=== PATIENT | male | born 1975 | race Caucasian/White ===

== ENCOUNTER 2023-07-31 12:53 | Day surgery (SDC) | payer BC ==
[~2023-07-31] VITALS: Ht 188 cm; Wt 98.9 kg
[2023-07-31 13:08] VITALS: BP 138/83
[2023-07-31] MEDS ORDERED: LOSARTAN POTASS25 MG PO (13:16)
[2023-07-31] MEDS ORDERED: SUDOGEST30 MG PO (13:17)
[2023-07-31] MEDS ORDERED: SINGULAIR10 MG PO (13:17)
--- NOTE | 2023-07-31 15:05 | NUR ---
07/31/23 1505 Sherry Rascon 1452 PT TO PACU FROM OR. AWAKE AND DENIES PAIN. RESPIRATIONS EVEN AND UNLABORED. 1500 DR AT BEDSIDE TO DISCUSS PROCEDURE RESULTS AND PLAN OF CARE.
[2023-07-31 15:22] VITALS: BP 134/89
--- NOTE | 2023-08-01 12:12 | OR ---
[facility] [address] [place], [place] [address] Signed DATE OF OPERATION: 07/31/2023 SURGEON: Librado Patel MD PREOPERATIVE DIAGNOSES: 1. Episodic dysphagia, episodic reflux, on no specific treatment. 2. Colon screening. POSTOPERATIVE DIAGNOSES: 1. Normal colon to cecum. 2. Poor flap valve with low-grade distal esophageal stricture; no evidence of Roberts's epithelium or eosinophilic esophagitis endoscopically. PROCEDURES: 1. Esophagogastroduodenoscopy with biopsy. 2. Total colonoscopy to cecum. ANESTHESIA: Intravenous sedation, fentanyl 150 mcg, Versed 8 mg total. INDICATION: This 48-year-old white man is a patient of Reta Cotto and the of my dental hygienist. He has had problems of distal dysphagia from time to time, though most recently not as much. He has had significant gastroesophageal reflux as far back as high school. He currently is under no medication treatment. He has had dysphagia to solids primarily, significant enough that he must regurgitate what he swallows from time to time. He has had no spontaneous regurgitation, however. He is now to undergo upper endoscopy on the basis of his dysphagia and known reflux disease as well as screening colonoscopy based on his age. The risk of both procedures include, but are not limited to bleeding, infection, and perforation. He understands and wished to proceed. FINDINGS: Upper endoscopy did demonstrate a low-grade distal esophageal stricture. There was no sign of Roberts's epithelium or actual malignancy in any way. The flap valve was marginal. No doubt allowing for reflux related to stricture formation. Stomach and duodenum were essentially normal. CLOtest was negative 30 minutes post procedure. On colonoscopy, the prep was good. Complete colonoscopy was undertaken to the cecum with full intubation of the cecum. Good visualization of the appendiceal orifice and the ileocecal valve. There were no findings on the colon. Electronically Signed By: LIBRADO PATEL MD 08/01/23 1212 PATIENT NAME: SUKH GARDNER OPERATIVE REPORT DATE OF : 71 REPORT #: [id number] PHYSICIAN: LIBRADO PATEL MD PCP: RETA COTTO REPORT IS CONFIDENTIAL AND NOT TO BE RELEASED WITHOUT AUTHORIZATION [facility] [address] [place], [place] [address] Signed DESCRIPTION OF PROCEDURE: The patient was brought to the endoscopy suite and placed in the lateral decubitus position after undergoing hypopharyngeal topical anesthesia with lidocaine spray. A bite block was placed. He was given intravenous sedation to the point of slurred speech and nystagmus. Olympus video upper endoscope was passed in the hypopharynx. The vocal cords were transiently visualized and normal. Scope was advanced to the esophagus. Throughout its length, it was normal except in the distal portion where there is a concentric ring consistent with a Schatzki's ring or reflux-related stricture. The scope was easily passed through this into the stomach which was normal. Rugal folds were normal as was the antrum. The pylorus was normal. Scope was passed through into the duodenum. Biopsies were taken of the duodenum to assess for celiac disease. The scope was withdrawn. Biopsies taken of the antrum for both DAI and pathologic testing. Retroflexed view was undertaken showing somewhat effaced flap valve but no sign of large hiatal hernia. The scope was straightened, withdrawn and biopsies then taken of the distal esophageal stricture area. Quite notably there was no evidence of Roberts's epithelium or ermelinda neoplasm and the stricture was not such that dilation would likely be effective given its very small size. The scope was then withdrawn and biopsies were taken of the midesophagus to assess for eosinophilic esophagitis. Further withdrawal of the proximal esophagus showed no findings of concern. Plans were then made for colonoscopy. Additional sedation was given. A digital rectal examination was performed, which was normal. An Olympus video colonoscope was passed in the rectum and manipulated throughout the colon. There was no evidence of diverticular formation, colitis, polyps, or other abnormalities. Scope was ultimately advanced to the cecum. The ileocecal valve and appendiceal orifice were normal. The scope was then withdrawn and examination carefully undertaken showing no sign of polyps, diverticular formation, colitis, or cancer. Retroflexed view of the rectum was normal. Scope was removed and the patient was taken to the recovery room in good condition. CONCLUDING DIAGNOSES: 1. Reflux related concentric stricture, no evidence of malignancy, biopsied and not dilated at this time. A poor flap valve is also noted. 2. Normal-appearing colon. PLAN: We would recommend PPI medication, Prilosec 20 mg p.o. daily and see him back in approximately eight weeks and assess his progress and review his pathology report. As regards to the colon, would recommend repeat colonoscopy in 10 years, sooner if clinically indicated. He will return to the ongoing care additionally to DAREN Morrison. Electronically Signed By: LIBRADO PATEL MD 08/01/23 1212 PATIENT NAME: SUKH GARDNER OPERATIVE REPORT DATE OF : 71 REPORT #: [id number] PHYSICIAN: LIBRADO PATEL MD PCP: RETA COTTO REPORT IS CONFIDENTIAL AND NOT TO BE RELEASED WITHOUT AUTHORIZATION [address] [address] Signed MD FRANCES Nagel/MODL /[id number] cc: DAREN Morrison Copies: RETA COTTO ~ Electronically Signed By: LIBRADO PATEL MD 08/01/23 1212 PATIENT NAME: SUKH GARDNER OPERATIVE REPORT DATE OF : 71 REPORT #: [id number] PHYSICIAN: LIBRADO PATEL MD PCP: RETA COTTO REPORT IS CONFIDENTIAL AND NOT TO BE RELEASED WITHOUT AUTHORIZATION
--- NOTE | 2023-08-04 15:51 | PATH ---
[facility] [address] [place], [place] [address] Signed SPECIMEN(S): A DUODENAL BIOPSY SPECIMEN(S): B ANTRUM/PYLORUS BIOPSY SPECIMEN(S): C LOWER ESOPHAGEAL BIOPSY STRICTURE AREA SPECIMEN(S): D MIDDLE ESOPHAGEAL BIOPSY SPECIMEN SOURCE: A. DUODENAL BIOPSY B. ANTRUM/PYLORUS BIOPSY C. LOWER ESOPHAGEAL BIOPSY STRICTURE AREA D. MIDDLE ESOPHAGEAL BIOPSY CLINICAL HISTORY: Significant dysphagia and GERD, initial screening colonoscopy. FINAL PATHOLOGIC DIAGNOSIS: A. Duodenal biopsy: - Benign duodenal mucosa, negative for specific diagnostic abnormality. B. Antrum/pylorus biopsy: - Benign gastric-type mucosa with focal slight chronic inflammation. - Negative for evidence of Helicobacter organisms on routine HE-stained sections. C. Lower esophageal biopsy stricture area: - Esophageal and gastric-type mucosa with reactive features and focal slight chronic and minimal acute inflammation. - Negative for specialized intestinal metaplasia or dysplasia on the limited gastric epithelium. - Focally increased epithelial eosinophils in the esophageal mucosa (up to approximately 40 per high powered field). (See Comment). D. Middle esophageal biopsy: - Benign esophageal mucosa, negative for significantly increased epithelial eosinophils. COMMENT: The isolated eosinophils at the gastroesophageal junction may be due to reflux esophagitis given the lack of increased epithelial eosinophils in the middle esophageal biopsy. Clinical correlation is requested for definitive characterization as eosinophilic esophagitis remains in the differential. JVR:smn MICROSCOPIC EXAMINATION: PATIENT NAME: SUKH DONAHUE [facility] PATHOLOGY DATE OF : 71 REPORT #: [id number] PHYSICIAN: JENNY PATHOLOGY PCP: RETA UNDERWOOD REPORT IS CONFIDENTIAL AND NOT TO BE RELEASED WITHOUT AUTHORIZATION [facility] [address] [place], [place] [address] Signed Histologic sections of all submitted blocks are examined by light microscopy. These findings, together with the gross examination, support the pathologic diagnosis. GROSS DESCRIPTION: A. The specimen, labeled and designated "Godfrey, Carolina, " and designated on the requisition "duodenum (NOS) biopsy," is received in formalin and consists of two bill-brown soft tissue fragments measuring 0.3 cm in length and up to 0.3 cm in diameter, the specimens are submitted entirely in (A1). B. The specimen, labeled and designated "Donahue, K, " and designated on the requisition "stomach, antrum/pylorus biopsy," is received in formalin and consists of four bill soft tissue fragments measuring 0.2 to 0.4 cm in length and up to 0.3 cm in greatest diameter, all specimens are submitted entirely in (B1). C. The specimen, labeled and designated "Donahue, K, " and designated on the requisition "lower esophagus stricture area biopsy," is received in formalin and consists of seven bill-white soft tissue fragments measuring 0.3 to 0.6 cm in length and up to 0.4 cm in diameter, all specimens are submitted entirely in (C1). D. The specimen, labeled and designated "Donahue, K, " and designated on the requisition "middle esophagus biopsy," is received in formalin and consists of multiple bill-white soft tissue fragments measuring 1.3 x 0.8 x 0.2 cm in aggregate, all specimens are submitted entirely in (D1). MMA (under the direct supervision of a pathologist) The Gross Description was prepared using a voice recognition system. The report was reviewed for accuracy; however, sound-alike word errors, addition and/or deletions may occur. If there is any question about this report, please contact Client Services. ADDITIONAL NOTES: Immunohistochemical and/or in situ hybridization studies if performed in this case included appropriate positive controls that reacted as expected. This test was developed and its performance characteristics determined by for[MD]. It has not been cleared or approved by the U.S. Food and Drug Administration. The FDA has determined that such clearance or approval is not necessary. This test is used for clinical purposes. It should not be regarded as investigational or for research. for[MD] is certified under the Clinical Laboratory Improvement PATIENT NAME: SUKH DONAHUE PATHOLOGY DATE OF : 71 REPORT #: [id number] PHYSICIAN: JENNY BENSON PCP: RETA UNDERWOOD REPORT IS CONFIDENTIAL AND NOT TO BE RELEASED WITHOUT AUTHORIZATION [facility] [address] [place] [id number] Signed Amendments of 1988 (CLIA) as qualified to perform high complexity clinical laboratory testing. PERFORMING LABORATORY: Technical component was performed by [facility][MD], [address] [place] [id number] (CLIA# [id number]). Professional interpretation was performed by [facility], [address] [place], [place] [address] [address] (CLIA#: [id number]). Diagnostician: Sergio Delgado MD Pathologist Electronically Signed 08/04/2023 Copies: ~ PATIENT NAME: SUKH DONAHUE PATHOLOGY DATE OF : 71 REPORT #: [id number] PHYSICIAN: JENNY BENSON PCP: RETA UNDERWOOD REPORT IS CONFIDENTIAL AND NOT TO BE RELEASED WITHOUT AUTHORIZATION
== END 2023-07-31 15:35 | disposition home or self-care (01) ==
LOC: DS 12:53 → OPS 12:53 → DS 14:00 → OPS 14:00
PROVIDERS: ATTEND Surgery
PROC: 0DB28ZX Excision of Middle Esophagus, Via Natural or Artificial Opening Endoscopic, Diagnostic (ICD-10-PCS; 2023-07-31)
PROC: 0DJD8ZZ Inspection of Lower Intestinal Tract, Via Natural or Artificial Opening Endoscopic (ICD-10-PCS; 2023-07-31)
PROC: 0DB98ZX Excision of Duodenum, Via Natural or Artificial Opening Endoscopic, Diagnostic (ICD-10-PCS; principal; 2023-07-31 14:00)
PROC: 0DB78ZX Excision of Stomach, Pylorus, Via Natural or Artificial Opening Endoscopic, Diagnostic (ICD-10-PCS; 2023-07-31 14:00)
DX: Z12.11 Encounter for screening for malignant neoplasm of colon (principal); K22.2 Esophageal obstruction; K29.70 Gastritis, unspecified, without bleeding; R13.19 Other dysphagia; Z87.19 Personal history of other diseases of the digestive system; I10 Essential (primary) hypertension
CPT/HCPCS: 99153; G0500; J2250; J3010; J7121